=== PATIENT | male | born 1955 | race Caucasian/White ===

== ENCOUNTER 2024-09-20 18:56 | Emergency (ER) | payer MEDICARE, BC ==
[~2024-09-20] VITALS: Ht 193 cm; Wt 97.5 kg
[2024-09-20] MEDS ORDERED: SODIUM CHLORIDE 0.9% 1,000 ML IV STA (19:25)
[2024-09-20] MEDS ORDERED: ACETAMINOPHEN 500 MG TAB PO ONE (19:30)
[2024-09-20] MEDS ORDERED: KETOROLAC TROMETHAMINE 30 MG/ML SDV IV ONE (19:30)
[2024-09-20] MEDS ORDERED: ALUM & MAG HYDROX-SIMETHICONE 30 ML PO ONE (19:40)
[2024-09-20] MEDS ORDERED: PANTOPRAZOLE SODIUM Sesquihydr 40 MG/TAB PO ONE (19:40)
[2024-09-20 19:52] LABS: BASO% 0.2 % (0-3); EOS% 5.1 % (0-8); HEMOGLOBIN 14.2 g/dl (14.0-18.0); IMMATURE GRANULOCYTES 0.2 % (0.0-5.0); LYMPH% 29.8 % (15-41); MEAN CELL VOLUME 102.6 fL CALC (80.0-100.0); MEAN CORPUSCULAR HGB 33.1 pG CALC (26.0-32.0); MEAN CORPUSCULAR HGB CONC 32.3 g/dL CAL (32.0-36.0); MONO% 9.2 % (2-13); NEUT# 3.07 thou/uL (1.82-7.42); NEUT% 55.5 % (42-76); RED BLOOD COUNT 4.29 mill/uL (4.70-6.10); RED CELL DISTRI WIDTH 12.4 % (11.5-15.5)
[2024-09-20 19:57] LABS: ALBUMIN 4.3 g/dL (3.2-5.0); BILIRUBIN, TOTAL 0.4 mg/dL (0.2-1.3); POTASSIUM 4.2 mmol/l (3.5-5.1); TOTAL PROTEIN 7.5 g/dL (6.3-8.2)
[2024-09-20] MEDS ORDERED: KETOROLAC TROMETHAMINE 30 MG/ML SDV IM ONE (20:25)
[2024-09-20 20:42] LABS: URINE BILIRUBIN - DIPSTICK Negative (NEGATIVE); URINE BLOOD DIPSTICK Moderate (NEGATIVE); URINE GLUCOSE - DIPSTICK Negative (NEGATIVE); URINE KETONE Negative (NEGATIVE); URINE LEUK ESTERASE Negative (NEGATIVE); URINE NITRITE - DIPSTICK Negative (Negative); URINE PROTEIN - DIPSTICK 30 mg/dL (NEG-TRACE); URINE UROBILINOGEN - DIPSTICK 0.2 E.U./dL (0.2)
[2024-09-20 20:47] LABS: URINE COLOR Yellow
[2024-09-20 20:48] LABS: URINE WBC 0-2 WBC/hpf (0-5)
[2024-09-20 21:12] VITALS: BP 134/78
== END 2024-09-20 21:12 | disposition home or self-care (01) ==
LOC: ED 18:56
PROVIDERS: Family Medicine
DX: S39.012A Strain of muscle, fascia and tendon of lower back, initial encounter (principal); X58.XXXA Exposure to other specified factors, initial encounter; Q61.5 Medullary cystic kidney; R31.9 Hematuria, unspecified